=== PATIENT | female | born 1990 | race African-American/Black ===

== ENCOUNTER 2018-10-02 04:30 | Inpatient (IN) | payer OTHER ==
[~2018-10-02 04:30] MED LIST: AMPICILLIN - 2 GM in SODIUM CHLORIDE 100 ML IVPB ONE; BUTORPHANOL TARTRATE 1 MG/ML VIAL IVPB ONE; PROMETHAZINE HCL 25 MG/1 ML VIAL IVPB ONE
[2018-10-02] MEDS: ELECTROLYTE-148 SOLN 1,000 ML IV SCH ×2 (06:18→15:00)
[2018-10-02] MEDS ORDERED: AMPICILLIN SODIUM 2 GM VIAL ONE (06:24)
[2018-10-02 06:44] VITALS: BMI 29.0
[2018-10-02 07:18] LABS: HEMOGLOBIN 10.2 GM/dL (10.7-15.3); MEAN CELL VOLUME 82.7 fl (80-96)
[2018-10-02 07:22] LABS: BASO % 0.5 % (0-2.0); EOS % 1.2 % (0-4.5); HEMATOCRIT 31.1 % (32.4-45.2); LYMPH % 19.7 % (8-40); MCH 27.1 pg (25.7-33.7); MCHC 32.7 g/dl (32.0-36.0); MEAN PLT VOLUME 7.9 fl (7.5-11.1); MONO % 9.6 % (3.8-10.2); PLATELET COUNT 333 K/MM3 (134-434); RBC 3.76 M/mm3 (3.60-5.2); RDW 15.2 % (11.6-15.6); WHITE BLOOD COUNT 11.4 K/mm3 (4.0-10.0)
[2018-10-02 07:31] LABS: INR 1.05 (0.83-1.09); PROTHROMBIN TIME (PATIENT) 12.4 SEC (9.7-13.0)
[2018-10-02 07:33] LABS: ACTIVATED PTT 29.7 SECONDS (25.2-36.5)
[2018-10-02 08:08] LABS: BLOOD UREA NITROGEN 6.2 mg/dL (7-18); CALCIUM 9.3 mg/dL (8.5-10.1); CREATININE 0.6 mg/dL (0.55-1.3); POTASSIUM 3.8 mmol/L (3.5-5.1)
--- NOTE | 2018-10-02 08:20 | PN ---
Progress Note (short form) - Note Progress Note: cx 4 cm 80 vx -2 mi, fhr cat1, irregular contraction, arom, scant clear advised pitocin stimulation ,
[2018-10-02] MEDS ORDERED: OXYTOCIN 30 UNITS in 0.9% NS 30 UNIT/500 ML INFUS.BAG IVPB SCH (08:30)
[2018-10-02] MEDS ORDERED: AMPICILLIN - 1 GM in SODIUM CHLORIDE 100 ML IVPB SCH (08:30)
[2018-10-02] MEDS ORDERED: OXYTOCIN 30 UNITS in 0.9% NS 30 UNIT/500 ML INFUS.BAG IVPB ONE (08:32)
--- NOTE | 2018-10-02 09:47 | PN ---
Progress Note (short form) - Note Progress Note: cx 4 cm 80 vx -1 mr, fhr cat 1
[2018-10-02] MEDS ORDERED: AMPICILLIN SODIUM 1 GM VIAL ONE ×2 (10:27→14:14)
[2018-10-02] MEDS: AMPICILLIN - 1 GM in SODIUM CHLORIDE 100 ML IVPB SCH ×3 (10:30→18:31)
[2018-10-02] MEDS ORDERED: PROMETHAZINE HCL 25 MG/1 ML VIAL ONE (10:48)
[2018-10-02] MEDS ORDERED: BUTORPHANOL TARTRATE 1 MG/ML VIAL ONE ×2 (10:48)
[2018-10-02 12:42] LABS: ANISOCYTOSIS 1+; MACROCYTOSIS 0; PLATELET ESTIMATE NORMAL
[2018-10-02] MEDS ORDERED: FENTANYL/BUPIVACAINE/NS/PF - PCEA - 50 ML DISP.SYRIN EP ONE (13:17)
--- NOTE | 2018-10-02 13:20 | PN ---
Progress Note (short form) - Note Progress Note: cx 6 cm 100 vx 0 , fhr cat 1 , wants epidural
--- NOTE | 2018-10-02 13:42 | PN ---
Progress Note (short form) - Note Progress Note: cx 6 cm, 100 0 , scalp electrode applied , variable decl, pitocin stopped
[2018-10-02] MEDS ORDERED: NALOXONE HCL 0.4 MG/ML VIAL IVPUSH PRN (14:58)
[2018-10-02] MEDS ORDERED: FENTANYL/BUPIVACAINE/NS/PF - PCEA - 50 ML DISP.SYRIN EP SCH (15:00)
[2018-10-02] MEDS ORDERED: OXYTOCIN 20 UNITS in 0.9% NS 20 UNIT/1,000 ML INFUS.BAG IV ONE ×2 (16:08→19:24)
[2018-10-02] MEDS ORDERED: LIDOCAINE HCL 1% PRESERVATIVE FREE - 30ML VIAL ONE (16:08)
[2018-10-02] MEDS ORDERED: BISACODYL 10 MG SUPP.RECT RC PRN (16:53)
[2018-10-02] MEDS ORDERED: BENZOCAINE 28 GM HEMORRHOIDAL OINTMENT TP PRN (16:53)
[2018-10-02] MEDS ORDERED: BENZOCAINE 20% 57 GM BOTTLE TP PRN (16:53)
[2018-10-02] MEDS ORDERED: WITCH HAZEL 50% (TUCKS) 40 PAD/JAR PAD TP PRN (16:53)
[2018-10-02] MEDS ORDERED: METHYLERGONOVINE MALEATE 0.2 MG/1 ML AMP IM PRN (16:53)
[2018-10-02] MEDS ORDERED: OXYTOCIN 20 UNITS in 0.9% NS 20 UNIT/1,000 ML INFUS.BAG IV SCH (17:00)
[2018-10-02] MEDS ORDERED: D5W-LR W/ 20 UNITS OXYTOCIN 20 UNIT/1,000 ML INFUS.BAG IV SCH (17:00)
[2018-10-02] MEDS: ACETAMINOPHEN 325 MG TABLET (FP) PO PRN ×2 (18:25→22:09)
[2018-10-02] MEDS ORDERED: ACETAMINOPHEN 325 MG TABLET (FP) ONE (18:25)
[2018-10-02] MEDS ORDERED: IBUPROFEN 600 MG TABLET (FP) PO ONE (18:25)
[2018-10-02] MEDS: IBUPROFEN 600 MG TABLET (FP) PO PRN ×2 (18:25→22:09)
--- NOTE | 2018-10-02 20:17 | PN ---
Delivery - Delivery Vaginal Delivery: Spontaneous (cx fully dilated , median episiotomy done, head delivered , nasopharynx suctioned , ant. and posterior shoulder with no difficulty , live baby 9/9 , placeta complete , median episiotmy in 3 layers with 2 0 chromic in 3 layers , rectal exam no defect , ebl 300cc , no complication) Type of Anesthesia: Local, Epidural Episiotomy/Laceration: Midline EBL (cc): 300 Delivery, Single - Stages of Labor Date 1st Stage Initiatied: 10/02/18 Time 1st Stage Initiated: 02:00 Date 2nd Stage Initiated: 10/02/18 Time 2nd Stage Initiated: 16:00 Date of Delivery: 10/02/18 Time of Delivery: 16:32 Time Placenta Delivered: 16:45 - Condition of Health Care Assistant/Industrial Automation Specialist Present: No Infant Gender: Male Weight: 7 lb Position: Left, OA Total Hours ROM (Hrs/Mins): 8HRS 30MIN - 1 Minute Total Score: 9 5 Minutes Total Score: 9 - Feeding Plan Initial Plan: Exclusive throughout hospitalization
[2018-10-02] MEDS: FERROUS SO4 325 MG TABLET (FP) PO SCH (22:09)
[2018-10-03] MEDS: IBUPROFEN 600 MG TABLET (FP) PO PRN ×5 (02:17→21:21)
[2018-10-03] MEDS: ACETAMINOPHEN 325 MG TABLET (FP) PO PRN ×5 (02:17→21:21)
--- NOTE | 2018-10-03 09:13 | PN ---
Post Progress Note - Subjective Subjective: No complaints, doing well. Reports tolerating oral intake without nausea or vomiting. Ambulating without dizziness. Denies fevers or chills. Pain well controlled with oral pain medication. Pumping/breast feeding without issue. Passing flatus, no BM. Requested to have circumcision for baby Post Day: 1 Type of Delivery: Vital Signs: Vital Signs Temperature 98.7 F 10/03/18 06:00 Pulse Rate 78 10/03/18 06:00 Respiratory Rate 18 10/03/18 06:00 Blood Pressure 138/75 10/03/18 06:00 O2 Sat by Pulse Oximetry (%) 100 10/02/18 17:45 Breast Exam: Yes: Soft Uterus: Yes: Fundus Firm, Fundus below umbilicus, Non-tender Abdomen/GI: Yes: Abdomen soft Lochia: Yes: Rubra Lochia, amount: Small Extremities: Yes: Calves non-tender Perineum: Yes: Laceration (intatc repair) Activity: Ambulating - Labs Labs: CBC WBC 11.4 K/mm3 (4.0-10.0) H 10/02/18 06:00 RBC 3.76 M/mm3 (3.60-5.2) 10/02/18 06:00 Hgb 10.2 GM/dL (10.7-15.3) L 10/02/18 06:00 Hct 31.1 % (32.4-45.2) L 10/02/18 06:00 MCV 82.7 fl (80-96) 10/02/18 06:00 MCH 27.1 pg (25.7-33.7) 10/02/18 06:00 MCHC 32.7 g/dl (32.0-36.0) 10/02/18 06:00 RDW 15.2 % (11.6-15.6) 10/02/18 06:00 Plt Count 333 K/MM3 (134-434) 10/02/18 06:00 MPV 7.9 fl (7.5-11.1) 10/02/18 06:00 Absolute Neuts (auto) 7.9 K/mm3 (1.5-8.0) 10/02/18 06:00 Neutrophils % 69.0 % (42.8-82.8) 10/02/18 06:00 Neutrophils % (Manual) 71.0 % (42.8-82.8) 10/02/18 06:00 Band Neutrophils % 0.0 % 10/02/18 06:00 Lymphocytes % 19.7 % (8-40) 10/02/18 06:00 Lymphocytes % (Manual) 19.0 % (8-40) 10/02/18 06:00 Monocytes % 9.6 % (3.8-10.2) 10/02/18 06:00 Monocytes % (Manual) 6 % (3.8-10.2) 10/02/18 06:00 Eosinophils % 1.2 % (0-4.5) 10/02/18 06:00 Eosinophils % (Manual) 2.0 % (0-4.5) 10/02/18 06:00 Basophils % 0.5 % (0-2.0) 10/02/18 06:00 Basophils % (Manual) 0.0 % (0-2.0) 10/02/18 06:00 Myelocytes % (Man) 0 % (0-2) 10/02/18 06:00 Promyelocytes % (Man) 0 % (0-2) 10/02/18 06:00 Blast Cells % (Manual) 0 % (0-0) 10/02/18 06:00 Nucleated RBC % 0 % (0-0) 10/02/18 06:00 Metamyelocytes 0 % (0-2) 10/02/18 06:00 Hypochromia 0 10/02/18 06:00 Platelet Estimate Normal 10/02/18 06:00 Polychromasia 1+ 10/02/18 06:00 Poikilocytosis 0 10/02/18 06:00 Anisocytosis 1+ 10/02/18 06:00 Microcytosis 1+ 10/02/18 06:00 Macrocytosis 0 10/02/18 06:00 Assessment/Plan 28yo P1 s/p , doing well stable, afebrile. Asymptomatic for anemia. care instructions reviewed. Continue routine care. Ambulation encouraged Discharge instruction reviewed.
[2018-10-03] MEDS: PRENATAL VITAMINS W/ FOLIC ACID TABLET (FP) PO SCH (09:52)
[2018-10-03] MEDS: FERROUS SO4 325 MG TABLET (FP) PO SCH ×2 (09:53→21:21)
[2018-10-03 13:33] LABS: BASO % 0.3 % (0-2.0); EOS % 0.5 % (0-4.5); HEMATOCRIT 28.5 % (32.4-45.2); HEMOGLOBIN 9.4 GM/dL (10.7-15.3); LYMPH % 14.6 % (8-40); MCH 27.2 pg (25.7-33.7); MEAN CELL VOLUME 82.4 fl (80-96); MEAN PLT VOLUME 7.5 fl (7.5-11.1); NEUT % 76.6 % (42.8-82.8); PLATELET COUNT 308 K/MM3 (134-434); RBC 3.45 M/mm3 (3.60-5.2); RDW 15.4 % (11.6-15.6); WHITE BLOOD COUNT 15.9 K/mm3 (4.0-10.0)
[2018-10-03] MEDS ORDERED: SENNOSIDES/DOCUSATE COMBO (SENNA PLUS) TABLET (UD) PO PRN (22:00)
[2018-10-04] MEDS: IBUPROFEN 600 MG TABLET (FP) PO PRN ×4 (02:29→15:28)
[2018-10-04] MEDS: ACETAMINOPHEN 325 MG TABLET (FP) PO PRN ×4 (02:30→15:28)
--- NOTE | 2018-10-04 08:10 | PN ---
Post Progress Note - Subjective Subjective: Patient without acute complaints. Reports tolerating oral intake without nausea or vomiting. Ambulating without dizziness. Denies fevers or chills. Pain well controlled with oral pain medication. without difficulty. Passing flatus. Post Day: 2 Type of Delivery: Vital Signs: Vital Signs Temperature 97.8 F 10/03/18 20:43 Pulse Rate 77 10/03/18 20:43 Respiratory Rate 20 10/03/18 20:43 Blood Pressure 122/67 10/03/18 20:43 O2 Sat by Pulse Oximetry (%) 100 10/02/18 17:45 Breast Exam: Yes: Soft Uterus: Yes: Fundus Firm, Fundus below umbilicus Abdomen/GI: Yes: Abdomen soft, Passing flatus, Tolerating PO. No: Abdominal Distention, Tender Lochia: Yes: Serosa Lochia, amount: Small Extremities: Yes: Calves non-tender, Edema (trace) Activity: Ambulating - Labs Labs: CBC WBC 15.9 K/mm3 (4.0-10.0) H 10/03/18 13:00 RBC 3.45 M/mm3 (3.60-5.2) L 10/03/18 13:00 Hgb 9.4 GM/dL (10.7-15.3) L 10/03/18 13:00 Hct 28.5 % (32.4-45.2) L 10/03/18 13:00 MCV 82.4 fl (80-96) 10/03/18 13:00 MCH 27.2 pg (25.7-33.7) 10/03/18 13:00 MCHC 33.0 g/dl (32.0-36.0) 10/03/18 13:00 RDW 15.4 % (11.6-15.6) 10/03/18 13:00 Plt Count 308 K/MM3 (134-434) 10/03/18 13:00 MPV 7.5 fl (7.5-11.1) 10/03/18 13:00 Absolute Neuts (auto) 12.2 K/mm3 (1.5-8.0) H 10/03/18 13:00 Neutrophils % 76.6 % (42.8-82.8) 10/03/18 13:00 Neutrophils % (Manual) 71.0 % (42.8-82.8) 10/02/18 06:00 Band Neutrophils % 0.0 % 10/02/18 06:00 Lymphocytes % 14.6 % (8-40) D 10/03/18 13:00 Lymphocytes % (Manual) 19.0 % (8-40) 10/02/18 06:00 Monocytes % 8.0 % (3.8-10.2) 10/03/18 13:00 Monocytes % (Manual) 6 % (3.8-10.2) 10/02/18 06:00 Eosinophils % 0.5 % (0-4.5) 10/03/18 13:00 Eosinophils % (Manual) 2.0 % (0-4.5) 10/02/18 06:00 Basophils % 0.3 % (0-2.0) 10/03/18 13:00 Basophils % (Manual) 0.0 % (0-2.0) 10/02/18 06:00 Myelocytes % (Man) 0 % (0-2) 10/02/18 06:00 Promyelocytes % (Man) 0 % (0-2) 10/02/18 06:00 Blast Cells % (Manual) 0 % (0-0) 10/02/18 06:00 Nucleated RBC % 0 % (0-0) 10/03/18 13:00 Metamyelocytes 0 % (0-2) 10/02/18 06:00 Hypochromia 0 10/02/18 06:00 Platelet Estimate Normal 10/02/18 06:00 Polychromasia 1+ 10/02/18 06:00 Poikilocytosis 0 10/02/18 06:00 Anisocytosis 1+ 10/02/18 06:00 Microcytosis 1+ 10/02/18 06:00 Macrocytosis 0 10/02/18 06:00 Assessment/Plan 28 yo PPD # 2 s/p afebrile, mild asymptomatic anemia, stable for discharge home today 1. Patient stable for discharge home today. 2. Patient encouraged to contact MD for: - Severe pain not controlled by oral pain medication - Fevers or chills - Nausea or vomiting, intolerance of oral intake 3. Patient to follow up in office in 4-6 weeks for visit
--- NOTE | 2018-10-04 08:12 | DS ---
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 and posterior shoulder with no difficulty , live baby 9/9 , placeta complete , median episiotmy in 3 layers with 2 0 chromic in 3 layers , rectal exam no defect , ebl 300cc , no complication) Type of Anesthesia: Local, Epidural Episiotomy/Laceration: Midline EBL (cc): 300 Delivery, Single - Stages of Labor Date 1st Stage Initiatied: 10/02/18 Time 1st Stage Initiated: 02:00 Date 2nd Stage Initiated: 10/02/18 Time 2nd Stage Initiated: 16:00 Date of Delivery: 10/02/18 Time of Delivery: 16:32 Time Placenta Delivered: 16:45 - Condition of Venue Attendant/Memory Care Program Resident Present: No Infant Gender: Male Weight: 7 lb Position: Left, OA Total Hours ROM (Hrs/Mins): 8HRS 30MIN - 1 Minute Total Score: 9 5 Minutes Total Score: 9 - Feeding Plan Initial Plan: Exclusive throughout hospitalization Discharge Summary Reason For Visit: EARLY LABOR Current Active Problems Anemia (Acute) Vaginal delivery (Acute) Procedures: Principal: Vaginal Delivery Hospital Course: Patient was admitted in labor She progressed to deliver via a viable male infant. PPD # 1 patient ambulated, voiding, passing gas, tolerating oral intake and with adequate pain control. She fulfilled all criteria for discharge PPD #2 Condition: Good - Instructions Diet, Activity, Other Instructions: Follow up in 4-6 weeks Physical activity Resume your normal everyday activity as tolerated no heavy lifting or exercise until seen by your surgeon. You may walk unlimited cassandra of and climb stairs. You may resume driving the car when you feel safe and comfortable behind the wheel. No sexual activity as instructed. Diet There are no dietary restrictions. Eat healthy, high-fiber foods. Drink 6 to 8 glasses of liquid each day. This will assist in keeping your bowels are regular. Pain management You may take Tylenol or acetaminophen or Ibuprofen (for example, Motrin, Advil etc.) for pain. Call MD if: Severe pain not relieved by medication Fever of 101 or higher Excessive bleeding or drainage on dressing Inability to urinate Referrals: Nuno Pierre MD [Staff Physician] - Disposition: HOME - Home Medications Comprehensive Discharge Medication List: Ambulatory Orders Pnv No.95/Ferrous Fum/Folic AC [ Vitamin Tablet] 1 each PO DAILY
[2018-10-04 08:36] VITALS: BP 128/80; PULSE 63; TEMP 98.6
[2018-10-04] MEDS: FERROUS SO4 325 MG TABLET (FP) PO SCH (09:25)
[2018-10-04] MEDS: PRENATAL VITAMINS W/ FOLIC ACID TABLET (FP) PO SCH (09:25)
== END 2018-10-04 17:50 | disposition home or self-care (01) | DRG 560 ==
LOC: JLDR 04:30 → J3W 19:49
PROVIDERS: ADMIT Obstetrics & Gynecology; ATTEND Obstetrics & Gynecology
PROC: 10E0XZZ Delivery of Products of Conception, External Approach (ICD-10-PCS; principal; 2018-10-02)
PROC: 0W8NXZZ Division of Female Perineum, External Approach (ICD-10-PCS; 2018-10-02)
DX: O76 Abnormality in fetal heart rate and rhythm complicating labor and delivery (principal); Z37.0 Single live birth; O99.02 Anemia complicating childbirth
CPT/HCPCS: 36415; 36600; 59409; 80048; 82803; 85025; 85610; 85730; 86593; 86762; 86850; 86900; 86901

== ENCOUNTER 2022-08-23 07:28 | Inpatient (IN) | payer OTHER ==
[2022-08-23] MEDS ORDERED: AMPICILLIN - 2 GM in SODIUM CHLORIDE 100 ML IVPB ONE (08:30)
[2022-08-23 08:43] VITALS: BMI 34.0
[2022-08-23] MEDS ORDERED: OXYTOCIN 30 UNITS in 0.9% NS 30 UNIT/500 ML INFUS.BAG IVPB SCH (08:45)
[2022-08-23] MEDS: ELECTROLYTE-148 SOLN 1,000 ML IV SCH ×2 (09:00→17:20)
[2022-08-23] MEDS ORDERED: AMPICILLIN SODIUM 2 GM VIAL ONE (09:00)
[2022-08-23 09:18] LABS: BASO % 0.5 % (0-2.0); EOS % 1.6 % (0-4.5); HEMATOCRIT 33.2 % (32.4-45.2); HEMOGLOBIN 11.6 GM/dL (10.7-15.3); LYMPH % 20.6 % (8-40); MCH 31.5 pg (25.7-33.7); MCHC 35.1 g/dl (32.0-36.0); MEAN CELL VOLUME 89.7 fl (80-96); MEAN PLT VOLUME 7.5 fl (7.5-11.1); MONO % 10.8 % (3.8-10.2); NEUT % 66.5 % (42.8-82.8); PLATELET COUNT 246 10^3/uL (134-434); WHITE BLOOD COUNT 10.8 K/mm3 (4.0-10.0)
[2022-08-23 09:28] LABS: INR 1.08 (0.83-1.09); PROTHROMBIN TIME (PATIENT) 12.5 SEC (9.7-13.0)
[2022-08-23 09:29] LABS: POTASSIUM 3.4 mmol/L (3.5-5.1)
[2022-08-23 09:31] LABS: ACTIVATED PTT 27.9 SECONDS (25.2-36.5); BLOOD UREA NITROGEN 3.3 mg/dL (7-18); CALCIUM 9.2 mg/dL (8.5-10.1)
[2022-08-23 09:35] LABS: CREATININE 0.5 mg/dL (0.55-1.3)
[2022-08-23] MEDS ORDERED: OXYTOCIN 30 UNITS in 0.9% NS 30 UNIT/500 ML INFUS.BAG IVPB ONE (09:40)
[2022-08-23 09:56] LABS: ANISOCYTOSIS 2+; MACROCYTOSIS 0
[2022-08-23] MEDS ORDERED: AMPICILLIN SODIUM 1 GM VIAL ONE ×2 (13:02→17:17)
[2022-08-23] MEDS: AMPICILLIN - 1 GM in SODIUM CHLORIDE 100 ML IVPB SCH ×2 (13:10→17:20)
[2022-08-23 14:25] LABS: HIV INTERPRETATION NEGATIVE (NEGATIVE)
[2022-08-23] MEDS ORDERED: FENTANYL/BUPIVACAINE/NS/PF - PCEA - 50 ML DISP.SYRIN EP ONE ×2 (14:41→18:48)
[2022-08-23] MEDS: FENTANYL/BUPIVACAINE/NS/PF - PCEA - 50 ML DISP.SYRIN EP SCH ×2 (15:20→18:50)
[2022-08-23] MEDS ORDERED: NALOXONE HCL 0.4 MG/ML VIAL IVPUSH PRN (16:12)
[2022-08-23 16:21] VITALS: RESP 18
[2022-08-23] MEDS ORDERED: SODIUM CHLORIDE 100 ML IVPB ONE (17:17)
[2022-08-23] MEDS ORDERED: FENTANYL CITRATE/PF 50 MCG/ML VIAL ONE (20:37)
[2022-08-23] MEDS ORDERED: BUPIVACAINE HCL/PF 0.25% (2.5MG/ML) 10 ML VIAL ONE (20:38)
[2022-08-23] MEDS ORDERED: OXYTOCIN 20 UNITS in 0.9% NS 20 UNIT/1,000 ML INFUS.BAG IV ONE (21:06)
[2022-08-23] MEDS ORDERED: oxyCODONE HCL 5 MG TABLET PO PRN (22:03)
[2022-08-23] MEDS ORDERED: WITCH HAZEL 50% (TUCKS) 40 PAD/JAR PAD TP PRN (22:03)
[2022-08-23] MEDS ORDERED: BENZOCAINE 20% 57 GM BOTTLE TP PRN (22:03)
[2022-08-23] MEDS ORDERED: ACETAMINOPHEN 325 MG TABLET (FP) PO PRN (22:03)
[2022-08-23] MEDS ORDERED: BISACODYL 10 MG SUPP.RECT RC PRN (22:03)
[2022-08-23] MEDS ORDERED: METHYLERGONOVINE MALEATE 0.2 MG/1 ML AMP IM PRN (22:03)
[2022-08-23] MEDS ORDERED: BENZOCAINE 28 GM HEMORRHOIDAL OINTMENT TP PRN (22:03)
[2022-08-23] MEDS ORDERED: OXYTOCIN 20 UNITS in 0.9% NS 20 UNIT/1,000 ML INFUS.BAG IV SCH (22:15)
[2022-08-23 22:45] LABS: CORD BASE EXCESS -5.9 mmol/L (0-2); CORD HCO3 19.4 mmHg (20-29); CORD PCO2 37.9 mmHg (30-78); CORD pH 7.328 (7.14-7.44)
[2022-08-23 22:45] LABS: CORD BASE EXCESS -6.3 mmol/L (0-2); CORD HCO3 21.5 mmHg (20-29); CORD pH 7.242 (7.14-7.44)
[2022-08-24] MEDS: IBUPROFEN 600 MG TABLET (FP) PO PRN (00:17)
[2022-08-24 08:28] LABS: HEMOGLOBIN 11.6 GM/dL (10.7-15.3); MCH 30.7 pg (25.7-33.7); MCHC 34.1 g/dl (32.0-36.0); MEAN CELL VOLUME 90.1 fl (80-96); MEAN PLT VOLUME 7.4 fl (7.5-11.1); PLATELET COUNT 243 10^3/uL (134-434); RBC 3.77 M/mm3 (3.60-5.2); RDW 15.1 % (11.6-15.6); WHITE BLOOD COUNT 15.6 K/mm3 (4.0-10.0)
[2022-08-24 09:20] LABS: ANISOCYTOSIS 0; HELMET CELLS 0; HOWELL-JOLLY BODIES 0; MACROCYTOSIS 0; OVALOCYTE 0; ROULEAU 0; SICKELED CELLS 0; TARGET CELLS 0; TEAR DROP CELLS 0; TOXIC GRANULATION 0
[2022-08-24] MEDS ORDERED: SENNOSIDES/DOCUSATE COMBO (SENNA PLUS) TABLET (UD) PO PRN (22:00)
[2022-08-25 09:12] VITALS: BP 134/75; PULSE 56; TEMP 97.5
[2022-08-25] MEDS: IBUPROFEN 600 MG TABLET (FP) PO PRN (09:55)
== END 2022-08-25 12:20 | disposition home or self-care (01) | DRG 560 ==
LOC: JLDR 07:28 → J3W 22:59
PROVIDERS: ADMIT Obstetrics & Gynecology; ATTEND Obstetrics & Gynecology
PROC: 10E0XZZ Delivery of Products of Conception, External Approach (ICD-10-PCS; principal; 2022-08-23)
PROC: 0HQ9XZZ Repair Perineum Skin, External Approach (ICD-10-PCS; 2022-08-23)
DX: O70.0 First degree perineal laceration during delivery (principal); Z3A.39 39 weeks gestation of pregnancy; Z37.0 Single live birth
CPT/HCPCS: 36415; 36600; 80048; 82803; 85025; 85610; 85730; 86780; 86850; 86900; 86901; 87389